=== PATIENT | female | born 1980 | race Two or more races ===

== ENCOUNTER → 2019-07-23 | Outpatient (CLI) | payer OTHER ==
[~2019-07-23] MED LIST: PRENATAL 19 TA1 EAC1 PO
== END | disposition home or self-care (01) ==
LOC: RAD 12:43
DX: M79.646 Pain in unspecified finger(s) (principal)

== ENCOUNTER 2019-08-09 06:00 | Day surgery (SDC) | payer OTHER | END 2019-08-09 10:05 | disposition home or self-care (01) | LOC: AMB-ENDOS 06:00 | DX: K62.89 Other specified diseases of anus and rectum (principal); Z12.11 Encounter for screening for malignant neoplasm of colon ==

== ENCOUNTER 2019-08-21 12:11 | Outpatient (CLI) | payer OTHER | END 2019-08-21 12:25 | disposition home or self-care (01) | LOC: SONOGRAMA 12:11 | DX: N63.10 Unspecified lump in the right breast, unspecified quadrant (principal); N63.20 Unspecified lump in the left breast, unspecified quadrant ==

== ENCOUNTER 2019-08-31 11:21 | Outpatient (CLI) | payer OTHER ==
[~2019-08-31 11:21] MED LIST changes: +CALCIU PO; +MULTIVITAMINS1 EAC9 PO; +PHENAGIL TABLE1 EACH PO; +VITC PO; +VITE PO
== END 2019-08-31 11:50 | disposition home or self-care (01) ==
LOC: TOM 11:21
DX: C50.212 Malignant neoplasm of upper-inner quadrant of left female breast (principal); C77.3 Secondary and unspecified malignant neoplasm of axilla and upper limb lymph nodes

== ENCOUNTER 2019-09-03 05:30 | Day surgery (SDC) | payer OTHER ==
[2019-09-03] MEDS ORDERED: ULTRACET PO (12:00)
== END 2019-09-03 14:30 | disposition home or self-care (01) ==
LOC: CIR.AMB 05:30
DX: C50.212 Malignant neoplasm of upper-inner quadrant of left female breast (principal)
CPT/HCPCS: 36561; C1751

== ENCOUNTER 2020-02-15 07:00 | Day surgery (SDC) | payer OTHER ==
[~2020-02-15 07:00] MED LIST changes: +ULTRACET PO
== END 2020-02-15 18:45 | disposition home or self-care (01) ==
LOC: CIR.AMB 07:00
PROVIDERS: ATTEND Surgery
DX: C50.412 Malignant neoplasm of upper-outer quadrant of left female breast (principal); Z90.13 Acquired absence of bilateral breasts and nipples; Z20.828 Contact with and (suspected) exposure to other viral communicable diseases

== ENCOUNTER 2021-02-09 06:20 | Day surgery (SDC) | payer OTHER ==
[~2021-02-09 06:20] MED LIST changes: +LEXAP PO; +MULTIVITA PO
[2021-02-09] MEDS ORDERED: ULTRAM50 MG PO (08:25)
== END 2021-02-09 09:40 | disposition home or self-care (01) ==
LOC: CIR.AMB 06:20
PROVIDERS: ATTEND Surgery
DX: C76.8 Malignant neoplasm of other specified ill-defined sites (principal); Z20.822 Contact with and (suspected) exposure to COVID-19

== ENCOUNTER 2021-07-10 11:04 | Outpatient (CLI) | payer OTHER ==
[~2021-07-10 11:04] MED LIST changes: +ULTRAM50 MG PO
== END 2021-07-10 11:08 | disposition home or self-care (01) ==
LOC: NUCLEAR 11:04
PROVIDERS: ATTEND Surgery
DX: I82.623 Acute embolism and thrombosis of deep veins of upper extremity, bilateral (principal); R22.33 Localized swelling, mass and lump, upper limb, bilateral

== ENCOUNTER 2021-08-25 12:55 | Outpatient (CLI) | payer OTHER | END 2021-08-25 13:15 | disposition home or self-care (01) | LOC: RAD 12:55 | PROVIDERS: ATTEND Physical Medicine & Rehabilitation | DX: S93.401A Sprain of unspecified ligament of right ankle, initial encounter (principal) ==

== ENCOUNTER 2021-09-01 10:25 | Outpatient (CLI) | payer OTHER | END 2021-09-01 10:37 | disposition home or self-care (01) | LOC: RAD 10:25 | PROVIDERS: ATTEND Physical Medicine & Rehabilitation | DX: M77.12 Lateral epicondylitis, left elbow (principal) ==

== ENCOUNTER 2022-11-02 11:00 | Outpatient (CLI) | payer OTHER | END 2022-11-02 11:07 | disposition home or self-care (01) | LOC: RAD 11:00 | DX: M25.522 Pain in left elbow (principal) ==

== ENCOUNTER 2024-10-05 11:20 | Outpatient (CLI) | payer OTHER | END 2024-10-05 11:30 | disposition home or self-care (01) | LOC: RAD 11:20 | PROVIDERS: ATTEND Physical Medicine & Rehabilitation | DX: S92.211D Displaced fracture of cuboid bone of right foot, subsequent encounter for fracture with routine healing (principal); M79.671 Pain in right foot ==